=== PATIENT | female | born 1945 | race Caucasian/White ===

== ENCOUNTER 2017-12-21 13:16 | Day surgery (SDC) | payer MEDICARE, BC ==
[~2017-12-21] VITALS: Ht 162.6 cm; Wt 107.9 kg
[~2017-12-21 13:16] MED LIST: ADVIL 200MG TA200 MG PO; ASPIRIN 32325 MG/TAB PO; CALTRATE-600 W600 MG PO; CLEOCIN HCL300 MG PO; COREG 6.256.25 MG/TA PO; FISH OIL1 IU PO; FORTAMET500 M1 PO; GARLIC SUPPLEM300 MG; LASIX 80MG TABL80 MG PO; LORTAB 10/500 51 TAB PO; LORTAB 5/500 501 TAB PO; MICRO-K 1010 MEQ PO; MVI PO; NORCO 325 MG-7.1 TAB PO; ONE DAILY1 TA1 PO; POTASSIUM CH2 MEQ/ML PO; PRAVACHOL 40MG40 MG PO; PRILOSEC 20MG20 MG PO; PROZAC 10MG10 MG PO; VITAMIN B-1000 MCG/T PO; VITAMIN B12 PO; XARELTO10 MG PO; ZYLOPRIM 100MG100 MG PO; [UNRECOGNIZED DRUG - OTHER] PO
[2017-12-21 14:09] VITALS: BP 141/74; PULSE 82; TEMP 98.3
[2017-12-21] MEDS ORDERED: GLUCOSAMINE SU500 M2 PO (14:55)
[2017-12-21 17:40] VITALS: BP 169/59; PULSE 70; TEMP 97.4
[2017-12-21 17:55] VITALS: BP 156/71; PULSE 75
[2017-12-21 18:10] VITALS: BP 147/65; PULSE 82
[2017-12-21 18:15] VITALS: BP 135/70; PULSE 82
== END 2017-12-21 18:50 | disposition home or self-care (01) ==
LOC: SDCO 13:16
DX: N20.0 Calculus of kidney (principal); E78.5 Hyperlipidemia, unspecified; I11.0 Hypertensive heart disease with heart failure; I50.9 Heart failure, unspecified; E11.9 Type 2 diabetes mellitus without complications; I48.92 Unspecified atrial flutter; E66.9 Obesity, unspecified; F17.210 Nicotine dependence, cigarettes, uncomplicated; N39.0 Urinary tract infection, site not specified; Z90.49 Acquired absence of other specified parts of digestive tract; Z79.82 Long term (current) use of aspirin; Z79.84 Long term (current) use of oral hypoglycemic drugs; Z88.2 Allergy status to sulfonamides; Z88.1 Allergy status to other antibiotic agents; Z88.3 Allergy status to other anti-infective agents; Z88.8 Allergy status to other drugs, medicaments and biological substances
CPT/HCPCS: C1769; J2704; J3010; J7030; Q9967

== ENCOUNTER 2019-03-07 09:48 | Day surgery (SDC) | payer MEDICARE, BC ==
[~2019-03-07] VITALS: Ht 162.6 cm; Wt 110.4 kg
[2019-03-07] VITALS (7 sets, daily range): BP systolic 128–166; BP diastolic 55–78; PULSE 78–87; TEMP 98.6–98.7
[~2019-03-07 09:48] MED LIST changes: +GLUCOSAMINE SU500 M2 PO
--- NOTE | 2019-03-07 13:05 | NUR ---
Patient returns to room 1 per cart and arouses to verbal stimuli. Jerry wrap dressing dry on the right lower ankle. Patient denies pain or nausea. Temp 98.2. Siderails up x2 and call light in reach. IV fluids infusing and patient allowed to sleep.
--- NOTE | 2019-03-07 13:20 | NUR ---
Patient continuing to sleep. Remains on oxygen at 2L per nasal cannula. Foot of cart is elevated.
--- NOTE | 2019-03-07 13:35 | NUR ---
Continues to rest with eyes closed and remains on oxygen at 2L per nasal cannuala.
--- NOTE | 2019-03-07 13:50 | NUR ---
More awake now and sipping on diet Sprite. Family in room and talking with patient. Denies pain or nausea.
[2019-03-07] MEDS ORDERED: NORCO 325 MG-51 TAB PO (13:56)
--- NOTE | 2019-03-07 14:05 | NUR ---
Sitting on edge of bed eating muffin and applesauce. Ambulatory to the bathroom and gait steady. Tolerates activity well. Continues to deny pain or nausea.
--- NOTE | 2019-03-07 14:20 | NUR ---
INT removed. Family in room. Assisted with dressing.
--- NOTE | 2019-03-07 14:25 | NUR ---
Dismissal instructions given and voices understanding of these. Provided post op appointment date and time and Dr. Mcgee's office number for questions and concerns.
--- NOTE | 2019-03-07 14:33 | NUR ---
Patient dismissed to home per private vehicle driven by spouse and taken to the front door per wheelchair and assisted into vehilce by RN with dismissal instructions in hand.
== END 2019-03-07 14:33 | disposition home or self-care (01) ==
LOC: SDCO 09:48
DX: C43.71 Malignant melanoma of right lower limb, including hip (principal); E11.41 Type 2 diabetes mellitus with diabetic mononeuropathy; Z79.4 Long term (current) use of insulin; E66.01 Morbid (severe) obesity due to excess calories; Z68.41 Body mass index [BMI] 40.0-44.9, adult; E78.00 Pure hypercholesterolemia, unspecified; F17.210 Nicotine dependence, cigarettes, uncomplicated; M81.0 Age-related osteoporosis without current pathological fracture; Z90.49 Acquired absence of other specified parts of digestive tract; Z90.710 Acquired absence of both cervix and uterus; Z87.442 Personal history of urinary calculi; Z79.899 Other long term (current) drug therapy; Z79.82 Long term (current) use of aspirin; Z80.9 Family history of malignant neoplasm, unspecified; I11.0 Hypertensive heart disease with heart failure; I50.9 Heart failure, unspecified
CPT/HCPCS: J2405; J2704; J3010

== ENCOUNTER 2019-06-16 18:33 | Inpatient (IN) | payer MEDICARE, BC ==
[~2019-06-16] VITALS: Ht 162.6 cm; Wt 113.6 kg
[~2019-06-16 18:33] MED LIST changes: +NORCO 325 MG-51 TAB PO
[2019-06-16] MEDS ORDERED: PREDNISONE20 MG PO (20:43)
[2019-06-16 20:54] LABS: HEMATOCRIT 46.4 % (37.0-47.0); HEMOGLOBIN 15.3 g/dl (12.5-16.0); MEAN CELL VOLUME 96 fl (80.0-100.0); MEAN CORPUSCULAR HEMOGLOBIN 32 pg (27.0-31.0); MEAN CORPUSCULAR HGB CONC 33 g/dl (33.0-37.0); PLATELET COUNT 241 K/mm3 (130-400); RED BLOOD COUNT 4.85 M/mm3 (4.10-5.30); REDCELL DISTRIBUTION WIDTH-CV 14.7 % (11.5-14.5)
[2019-06-16 21:03] LABS: ALBUMIN 2.6 gm/dL (3.5-5.0); BILIRUBIN,TOTAL 0.2 mg/dL (0.0-1.0); C-REACTIVE PROTEIN 4.8 mg/dL (0.0-0.9); CREATININE, serum 0.83 (0.52-1.25); MAGNESIUM 1.6 mg/dL (1.6-2.3); PHOSPHOROUS 3.7 mg/dL (2.5-4.5); POTASSIUM 3.6 mmol/L (3.4-5.0)
[2019-06-16 21:08] VITALS: BP 123/50; PULSE 90; TEMP 98.3
[2019-06-16 21:13] VITALS: BP 123/50; PULSE 89; TEMP 98.3
[2019-06-16 21:22] LABS: BAND 24 % (0-10); BASOPHIL 1 % (0-2); EOSINOPHIL 1 % (0-4); LYMPHOCYTE 7 % (20.0-51.0); NEUTROPHILS 67 % (42.0-75.2); PLATELET ESTIMATE NORMAL (NORMAL)
--- NOTE | 2019-06-16 21:40 | NUR ---
Pt arrived to unit from EMS. Alert and oriented with VSS. Resting in bed. Did not want to change into gown. 5page completed along with med rec. Here with dx of colitis. States she has been having diarrhea for 2 weeks with bloody mucous. Has not had BM since she has been here. Arrived to unit with potassium 40meq with NS running at 125. Has history of melanoma on right lower leg. Does chemo with dr rubalcava, last session was 2 weeks ago. Has port to right chest. CD&I and dressing changed when she arrived to unit. Patient states her pain is stable at this time. Call light within reach, will continue to monitor
[2019-06-16 22:49] VITALS: BP 134/51; PULSE 82; TEMP 97.8
[2019-06-16] MEDS ORDERED: GLUCOPHAGE500 MG/TAB PO (23:10)
[2019-06-17 00:08] LABS: MUCOUS Present /lpf; PH 6 (5-8); SQUAMOUS EPITHELIAL 0-2 /hpf; URINE APPEARANCE Clear; URINE BACTERIA Rare /hpf; URINE BILIRUBIN Negative (NEGATIVE); URINE BLOOD Negative (NEGATIVE); URINE COLOR Yellow; URINE GLUCOSE Negative (NEGATIVE); URINE KETONE Negative (NEGATIVE); URINE LEUKOCYTE ESTERASE 1+ (NEGATIVE); URINE NITRATE Positive (NEGATIVE); URINE PROTEIN(semi-quant) 1+ (NEGATIVE); URINE RBC 0-2 /hpf; URINE UROBILINOGEN Negative (NEGATIVE)
[2019-06-17 00:09] LABS: COLLECTION METHOD CLEAN CATCH
--- NOTE | 2019-06-17 03:22 | NUR ---
Patient sleeping in bed. Potassium running. No issues noted. Has no concerns at this time. Call light within reach, will continue to monitor
[2019-06-17 04:00] VITALS: BP 127/57; PULSE 70; TEMP 98.2
[2019-06-17 08:26] VITALS: BP 123/58; PULSE 66; TEMP 98.3
--- NOTE | 2019-06-17 10:15 | NUR ---
Patient alert and oriented, answers questions appropriately. No c/o abdominal pain or pressure. Abdomen soft, non tender, non distended. Bowel sounds active x4 quads. +Flatus. No stools since late last night. No other c/o at this time.
[2019-06-17 11:12] LABS: HEMATOCRIT 46.3 % (37.0-47.0); HEMOGLOBIN 14.8 g/dl (12.5-16.0); MEAN CELL VOLUME 99 fl (80.0-100.0); MEAN CORPUSCULAR HEMOGLOBIN 32 pg (27.0-31.0); MEAN CORPUSCULAR HGB CONC 32 g/dl (33.0-37.0); MEAN PLATELET VOLUME 9.8 fl (7.4-10.4); PLATELET COUNT 242 K/mm3 (130-400); REDCELL DISTRIBUTION WIDTH-CV 14.9 % (11.5-14.5)
[2019-06-17 11:18] LABS: CALCIUM 8.3 mg/dL (8.4-10.2); CREATININE, serum 0.67 (0.52-1.25); MAGNESIUM 2.1 mg/dL (1.6-2.3)
[2019-06-17 11:34] LABS: BAND 37 % (0-10); LYMPHOCYTE 6 % (20.0-51.0); METAMYELOCYTE 1 % (0-0); MYELOCYTE 4 % (0-0); NEUTROPHILS 51 % (42.0-75.2)
[2019-06-17 11:36] LABS: PLATELET ESTIMATE NORMAL (NORMAL)
[2019-06-17 12:08] VITALS: BP 113/54; PULSE 56; TEMP 98.2
--- NOTE | 2019-06-17 14:13 | NUR ---
Dr Siddiqui notified of consult.
[2019-06-17 16:04] VITALS: BP 114/58; PULSE 63; TEMP 98.1
--- NOTE | 2019-06-17 16:40 | NUR ---
Plan is to return home with Sebastian . DTR Sondra Leonardo is and EMR contact. Patient reports that she resides in [facility]. Patient reports Dr. Parker as PCP with [facility] in late Jun. Patient reports that [facility] is where they otain RX. Patient reports the use of a cane PRn. No additona DME. Declines home health services. Patient reports having a DPOA and not sure if copy on file. No additonal needs identified.
--- NOTE | 2019-06-17 20:08 | NUR ---
Pt doing ok. Alert and oriented with vss. C/o mild abdominal cramping. Fluids running. No other complaints at this time. Call light within reach, will continue to monitor
[2019-06-17 20:12] VITALS: BP 116/48; PULSE 58; TEMP 97.9
[2019-06-17 23:47] VITALS: PULSE 64
[2019-06-18] VITALS (7 sets, daily range): BP systolic 112–136; BP diastolic 51–70; PULSE 56–66; TEMP 96.3–98.3
--- NOTE | 2019-06-18 03:32 | NUR ---
Received call from lab stating procalcitonin that was ordered 06/16 was missed. Lab re-ordered for this AM draw and will be back within 24 hours
[2019-06-18 07:20] LABS: HEMATOCRIT 45.7 % (37.0-47.0); HEMOGLOBIN 14.5 g/dl (12.5-16.0); MEAN CELL VOLUME 98 fl (80.0-100.0); MEAN CORPUSCULAR HEMOGLOBIN 31 pg (27.0-31.0); MEAN CORPUSCULAR HGB CONC 32 g/dl (33.0-37.0); MEAN PLATELET VOLUME 10.1 fl (7.4-10.4); PLATELET COUNT 263 K/mm3 (130-400); RED BLOOD COUNT 4.66 M/mm3 (4.10-5.30)
[2019-06-18 07:38] LABS: CALCIUM 8.2 mg/dL (8.4-10.2); CREATININE, serum 0.65 (0.52-1.25); POTASSIUM 3.9 mmol/L (3.4-5.0)
[2019-06-18 08:23] LABS: BAND 21 % (0-10); LYMPHOCYTE 4 % (20.0-51.0); NEUTROPHILS 68 % (42.0-75.2); NUCLEATED RED BLOOD CELL 1 (0-6); PLATELET ESTIMATE NORMAL (NORMAL)
--- NOTE | 2019-06-18 10:00 | NUR ---
Patient alert and oriented, answers questions appropriately. See assessment. Abdomen soft, non tender, non distended. Bowel sounds active x4 quads. +Flatus. +Bowel movement. No c/o abdominal pain or cramping. No other c/o at this time.
--- NOTE | 2019-06-18 11:53 | NUR ---
Initial visit; Patient thanked Retail Agent for looking in on her and offering God's blessings.
--- NOTE | 2019-06-18 14:30 | NUR ---
VAISHNAVI met with the patient to review discharge plan and to discuss PT's recommendation of home vs some post-acute rehab. The patient reports that she still plans to return home with her upon discharge. She states that she is not interested in going anywhere for post-acute rehab. VAISHNAVI also discussed home health services and outpatient PT. The patient reports that she is not interested in home health or outpatient PT either. She states that she has been getting around okay and does not have any concerns. The patient had no other questions for VAISHNAVI at this time. VAISHNAVI to continue to follow.
--- NOTE | 2019-06-18 19:40 | NUR ---
Lying in bed with eyes open watching TV. Rates pain in lower back and hips 6/10 and describes the pain as an ache. Scheduled pain medication administered as prescribed. Bilateral lower extremities with 1+ edema. Right lower extremity with healed venous ulcers and there are multiple areas of 0.5cm black circles that patient says is the site of her cancer. Dressing to port-a-cath not intact. Sterile dressing change performed at this time to port-a-cath on right upper chest. Patient tolerates procedure without difficulty. Patient was able to have a small loose stool. Stool specimens collected at this time and sent to the lab. Patient denies further needs at this time.
--- NOTE | 2019-06-18 21:45 | NUR ---
Lying in bed with eyes open. Rates pain 3/10, feels that the pain medication helped. Denies further needs at this time.
--- NOTE | 2019-06-18 23:25 | NUR ---
Lying in bed with eyes closed. Eyes open when name called out. Denies pain. Ambulates to bathroom, gait steady. Voids without difficulty. Returns to bed. Denies further needs at this time.
[2019-06-19 03:41] VITALS: BP 131/66; PULSE 57; TEMP 97.7
--- NOTE | 2019-06-19 03:45 | NUR ---
Lying in bed with eyes closed. Eyes open when name called out. Denies pain. Denies any needs at this time.
--- NOTE | 2019-06-19 05:45 | NUR ---
Patient up to bathroom. Has small stool and urinates. Returns to bed. Denies pain or any further needs at this time.
[2019-06-19 06:57] LABS: HEMATOCRIT 44.6 % (37.0-47.0); HEMOGLOBIN 14.3 g/dl (12.5-16.0); MEAN CELL VOLUME 97 fl (80.0-100.0); MEAN CORPUSCULAR HEMOGLOBIN 31 pg (27.0-31.0); MEAN CORPUSCULAR HGB CONC 32 g/dl (33.0-37.0); MEAN PLATELET VOLUME 10.2 fl (7.4-10.4); PLATELET COUNT 243 K/mm3 (130-400); RED BLOOD COUNT 4.58 M/mm3 (4.10-5.30)
[2019-06-19 07:12] LABS: CALCIUM 8.1 mg/dL (8.4-10.2); CREATININE, serum 0.69 (0.52-1.25); POTASSIUM 4.6 mmol/L (3.4-5.0)
[2019-06-19 07:27] LABS: BAND 12 % (0-10); LYMPHOCYTE 8 % (20.0-51.0); NEUTROPHILS 78 % (42.0-75.2); PLATELET ESTIMATE NORMAL (NORMAL)
[2019-06-19 07:38] VITALS: BP 150/62; PULSE 63; TEMP 98.5
[2019-06-19 11:17] VITALS: BP 133/70; PULSE 61; TEMP 98.1
--- NOTE | 2019-06-19 11:46 | NUR ---
First visit from the corrosion control fitter. No needs right now.
[2019-06-19 16:20] VITALS: BP 157/62; PULSE 56; TEMP 98.2
--- NOTE | 2019-06-19 18:00 | NUR ---
Patient seemed to be having a good day today. She did not have too much pain. No complaints of nausea. She had one loose/liquid stool before my shift and none all day. Discharge discharge plan for her when she goes home. Other patient has been doing well an is independent. No other changes at this time. Call light within reach.
[2019-06-19 19:31] VITALS: BP 137/58; PULSE 61; TEMP 97.9
--- NOTE | 2019-06-19 20:15 | NUR ---
Pt. sitting up in bed at this time. Pt. is A&OX3, assessment complete. Portacath to rt. chest patent. Pt. reported back pain at a 5 on pain scale, gave pain meds per orders. Pt. denies further needs, call light within reach.
[2019-06-20] VITALS: BP 150/65; PULSE 65; TEMP 97.9
[2019-06-20 04:00] VITALS: BP 153/58; PULSE 62; TEMP 98.2
--- NOTE | 2019-06-20 07:00 | NUR ---
Reported onto BOO Velarde.
[2019-06-20 07:10] LABS: HEMATOCRIT 44.1 % (37.0-47.0); HEMOGLOBIN 14.3 g/dl (12.5-16.0); MEAN CELL VOLUME 97 fl (80.0-100.0); MEAN CORPUSCULAR HEMOGLOBIN 31 pg (27.0-31.0); MEAN CORPUSCULAR HGB CONC 32 g/dl (33.0-37.0); MEAN PLATELET VOLUME 10.2 fl (7.4-10.4); PLATELET COUNT 223 K/mm3 (130-400); RED BLOOD COUNT 4.57 M/mm3 (4.10-5.30); REDCELL DISTRIBUTION WIDTH-CV 14.9 % (11.5-14.5)
[2019-06-20 07:26] VITALS: BP 154/76
[2019-06-20 07:26] LABS: CALCIUM 8.1 mg/dL (8.4-10.2); CREATININE, serum 0.71 (0.52-1.25); POTASSIUM 4.5 mmol/L (3.4-5.0)
[2019-06-20 07:27] VITALS: BP 154/76; PULSE 62; TEMP 97.9
--- NOTE | 2019-06-20 07:30 | NUR ---
shift assessment completed. VSS non pitting edema noted in both feet. Patient states ready to go home. Patient ate 50% of general diet and drank a total of 360ml.
[2019-06-20 09:20] LABS: BAND 3 % (0-10); LYMPHOCYTE 7 % (20.0-51.0); METAMYELOCYTE 1 % (0-0); NEUTROPHILS 87 % (42.0-75.2); PLATELET ESTIMATE NORMAL (NORMAL)
--- NOTE | 2019-06-20 10:12 | NUR ---
SW attended clinical rounds. The patient is to discharge back home with her today, 06/20. No additional needs at this time.
--- NOTE | 2019-06-20 10:30 | NUR ---
Patient is doing well this am. Denies pain or nausea at this time. She is discharging home and is looking forward to going home. Explained that we will do her discharge paperwork as soon as the Hospitalist fill it out. No other changes at this time. Call light within reach.
[2019-06-20] MEDS ORDERED: COREG 3.123.125 MG/T PO (10:52)
[2019-06-20] MEDS ORDERED: PREDNISONE20 MG PO (10:57)
[2019-06-20 11:06] VITALS: BP 157/69; PULSE 68; TEMP 98.2
--- NOTE | 2019-06-20 11:16 | NUR ---
Reported off to nurse BOO Velarde.
--- NOTE | 2019-06-20 14:25 | NUR ---
Patient is discharging home. Discharge instructions discussed with patient. No questions verbalized. Port deaccessed by this nurse. Heparnized with 5ml of heparin before romaval, 500units of heparin. Explained follow up appointments. Explained that GI office will call with a follow up for the colitis. Patient verbalized understanding. All belongings packed up and sent with patient. Patient walked out via wheel chair.
== END 2019-06-20 14:25 | disposition home or self-care (01) | DRG 871 ==
LOC: SURG 18:33
PROVIDERS: Nurse Practitioner Family; Physician Assistant; ADMIT Hospitalist
DX: A41.9 Sepsis, unspecified organism (principal); J96.01 Acute respiratory failure with hypoxia; Z68.41 Body mass index [BMI] 40.0-44.9, adult; I48.92 Unspecified atrial flutter; I42.9 Cardiomyopathy, unspecified; N39.0 Urinary tract infection, site not specified; K52.9 Noninfective gastroenteritis and colitis, unspecified; I10 Essential (primary) hypertension; E78.5 Hyperlipidemia, unspecified; E66.01 Morbid (severe) obesity due to excess calories; E83.42 Hypomagnesemia; E87.6 Hypokalemia; N20.0 Calculus of kidney; J44.9 Chronic obstructive pulmonary disease, unspecified; C43.9 Malignant melanoma of skin, unspecified; I45.10 Unspecified right bundle-branch block; E11.9 Type 2 diabetes mellitus without complications; F17.210 Nicotine dependence, cigarettes, uncomplicated; Z79.84 Long term (current) use of oral hypoglycemic drugs; Z79.52 Long term (current) use of systemic steroids; Z79.82 Long term (current) use of aspirin; Z90.710 Acquired absence of both cervix and uterus; Z98.84 Bariatric surgery status; Z88.1 Allergy status to other antibiotic agents; Z88.0 Allergy status to penicillin; Z88.2 Allergy status to sulfonamides
CPT/HCPCS: 99222-AI; 99231-AI; 99232-AI; 99239; C9113; J1100; J1815; J2185; J3475; J3480; J7030

== ENCOUNTER 2019-06-27 11:59 | Day surgery (SDC) | payer MEDICARE, BC ==
[~2019-06-27] VITALS: Ht 162.6 cm; Wt 102.3 kg
[~2019-06-27 11:59] MED LIST changes: +COREG 3.123.125 MG/T PO; +GLUCOPHAGE500 MG/TAB PO; +PREDNISONE20 MG PO
[2019-06-27] MEDS ORDERED: NYSTATIN OR100 MU/ML PO (12:38)
[2019-06-27] MEDS ORDERED: DIFLUCAN 100MG100 MG PO (12:38)
[2019-06-27 12:48] VITALS: BP 132/68; PULSE 95; TEMP 99.1
--- NOTE | 2019-06-27 13:15 | NUR ---
Jose cath to right chest accessed using sterile technique. 19G 3/4" long needle used. Good blood return. Site covered with tegaderm. Pt tolerated procedure well. into consult with pt.
[2019-06-27 13:55] VITALS: BP 167/83; PULSE 86; TEMP 97.3
--- NOTE | 2019-06-27 13:55 | NUR ---
Pt to bay 3 via cart from [employer]. Pt drowsy, but awake. Pt ambulates to recliner with stand by assistance. Warm blankets provided. VSS. in room. Sprite, water, muffin and applesauce provided per pt request. Will continue to monitor.
[2019-06-27] MEDS ORDERED: VANCOCIN H125 MG/CAP PO (14:01)
[2019-06-27 14:10] VITALS: BP 145/80; PULSE 89
--- NOTE | 2019-06-27 14:10 | NUR ---
Pt continues to rest. Tolerating food and fluids without difficulties. Denies needs at this time.
[2019-06-27 14:25] VITALS: BP 136/80; PULSE 88
--- NOTE | 2019-06-27 14:25 | NUR ---
Pt resting. Denies needs. Call light within reach.
[2019-06-27 14:40] VITALS: BP 136/80; PULSE 88
--- NOTE | 2019-06-27 14:40 | NUR ---
Pt continues to rest. Denies needs. Call light within reach.
[2019-06-27 14:55] VITALS: BP 133/78; PULSE 90
--- NOTE | 2019-06-27 14:55 | NUR ---
Pt continues to rest. Denies needs.
--- NOTE | 2019-06-27 15:00 | NUR ---
Discharge instructions reviewed. Pt voices understanding. Jose cath flushed with 10ml NS followed by Heprin 500 units. Jose cath deaccessed with all parts intact. Bandaid placed. Pt up to dress with assistance from her . Call light within reach.
--- NOTE | 2019-06-27 15:15 | NUR ---
Pt escorted to private car via wheel chair. Pt accompanied home by her .
== END 2019-06-27 15:15 | disposition home or self-care (01) ==
LOC: SDCO 11:59
DX: K52.9 Noninfective gastroenteritis and colitis, unspecified (principal); K31.89 Other diseases of stomach and duodenum; K92.1 Melena; F41.9 Anxiety disorder, unspecified; K59.00 Constipation, unspecified; F32.9 Major depressive disorder, single episode, unspecified; E78.00 Pure hypercholesterolemia, unspecified; F17.210 Nicotine dependence, cigarettes, uncomplicated; I11.0 Hypertensive heart disease with heart failure; I50.9 Heart failure, unspecified; K21.9 Gastro-esophageal reflux disease without esophagitis; E11.9 Type 2 diabetes mellitus without complications; I48.91 Unspecified atrial fibrillation; Z92.21 Personal history of antineoplastic chemotherapy; Z88.1 Allergy status to other antibiotic agents; Z88.3 Allergy status to other anti-infective agents; Z88.0 Allergy status to penicillin; Z88.2 Allergy status to sulfonamides; Z91.048 Other nonmedicinal substance allergy status; Z79.84 Long term (current) use of oral hypoglycemic drugs; Z79.82 Long term (current) use of aspirin; Z85.820 Personal history of malignant melanoma of skin; Z90.710 Acquired absence of both cervix and uterus; Z90.49 Acquired absence of other specified parts of digestive tract; Z91.041 Radiographic dye allergy status
CPT/HCPCS: J1644; J2704; J7030

== ENCOUNTER 2019-07-30 11:00 | Outpatient (RCR) | payer MEDICARE, BC ==
[2019-07-17 11:17] LABS: HEMATOCRIT 46.5 % (37.0-47.0); MEAN CELL VOLUME 96 fl (80.0-100.0); MEAN CORPUSCULAR HEMOGLOBIN 31 pg (27.0-31.0); MEAN CORPUSCULAR HGB CONC 32 g/dl (33.0-37.0); MEAN PLATELET VOLUME 10.5 fl (7.4-10.4); PLATELET COUNT 195 K/mm3 (130-400); RED BLOOD COUNT 4.83 M/mm3 (4.10-5.30); REDCELL DISTRIBUTION WIDTH-CV 15.2 % (11.5-14.5)
[2019-07-17 11:31] LABS: ALBUMIN 3.1 gm/dL (3.5-5.0); BILIRUBIN,TOTAL 0.4 mg/dL (0.0-1.0); CALCIUM 8.7 mg/dL (8.4-10.2); CREATININE, serum 1.08 (0.52-1.25); TOTAL PROTEIN 5.5 gm/dL (6.4-8.2)
[2019-07-17 12:17] VITALS: BP 118/88; PULSE 87; TEMP 97.6
[2019-07-17 13:40] VITALS: BP 133/73; PULSE 94; TEMP 98.3
[2019-07-17 14:10] VITALS: BP 103/51; PULSE 104; TEMP 97.1
[2019-07-17 14:40] VITALS: BP 120/61; PULSE 88; TEMP 97.8
[2019-07-17 15:10] VITALS: BP 118/66; PULSE 93; TEMP 98.6
--- NOTE | 2019-07-17 15:35 | NUR ---
Pt annette Inflectra well. Pt discharged per w/c by nurse with friend. Pt will return 07/30/19 for 2 week infusion.
[~2019-07-30] VITALS: Ht 162.6 cm; Wt 97.9 kg
[~2019-07-30 11:00] MED LIST changes: +CLEOCIN HC150 MG/CAP PO; +DIFLUCAN 100MG100 MG PO; +MULTI VITAMINS1 TAB PO; +NYSTATIN OR100 MU/ML PO; -ONE DAILY1 TA1 PO; +VANCOCIN H125 MG/CAP PO
[2019-07-30 11:05] LABS: HEMATOCRIT 39.8 % (37.0-47.0); MEAN CELL VOLUME 97 fl (80.0-100.0); MEAN CORPUSCULAR HEMOGLOBIN 32 pg (27.0-31.0); MEAN CORPUSCULAR HGB CONC 33 g/dl (33.0-37.0); MEAN PLATELET VOLUME 10.4 fl (7.4-10.4); PLATELET COUNT 283 K/mm3 (130-400); RED BLOOD COUNT 4.12 M/mm3 (4.10-5.30)
[2019-07-30 11:21] LABS: ALBUMIN 3.2 gm/dL (3.5-5.0); BILIRUBIN,TOTAL 0.7 mg/dL (0.0-1.0); CALCIUM 8.5 mg/dL (8.4-10.2); CREATININE, serum 0.96 (0.52-1.25); POTASSIUM 3.8 mmol/L (3.4-5.0); TOTAL PROTEIN 5.9 gm/dL (6.4-8.2)
[2019-07-30 12:07] VITALS: BP 98/64; PULSE 93; TEMP 98.1
[2019-07-30] MEDS ORDERED: NOVOLOG 100U100 U/M1 SQ (12:18)
[2019-07-30 12:37] VITALS: BP 108/55; PULSE 87
[2019-07-30 13:05] VITALS: BP 123/68; PULSE 92
[2019-07-30 13:40] VITALS: BP 111/65; PULSE 90; TEMP 98
[2019-07-30 14:15] VITALS: BP 112/66; PULSE 91; TEMP 97
== END 2019-07-30 14:30 | disposition still patient (30) ==
LOC: EUO 11:00
PROVIDERS: Internal Medicine Gastroenterology
DX: T65.91XA Toxic effect of unspecified substance, accidental (unintentional), initial encounter (principal); Z79.899 Other long term (current) drug therapy
CPT/HCPCS: J1200; J1644; J2930; J7050; Q5103

== ENCOUNTER → 2020-05-12 | Outpatient (CLI) | payer BC, MEDICARE ==
[~2020-05-12] MED LIST changes: +NOVOLOG 100U100 U/M1 SQ
== END ==
LOC: COL.RAD 07:32
DX: R63.0 Anorexia (principal); R10.13 Epigastric pain; R63.4 Abnormal weight loss
CPT/HCPCS: A9541

== ENCOUNTER 2021-10-26 08:24 | Inpatient (IN) | payer MEDICARE, BC ==
[~2021-10-26] VITALS: Ht 162.7 cm; Wt 75.4 kg
[2021-12-01] VITALS (9 sets, daily range): BP systolic 121–150; BP diastolic 48–77; PULSE 64–94; TEMP 97.8–981
[2021-12-01] MEDS ORDERED: ZYLOPRIM 100MG100 MG PO (10:57)
[2021-12-01] MEDS ORDERED: ASPIRIN 32325 MG/TAB PO (10:58)
[2021-12-01] MEDS ORDERED: TUMS500 MG PO (10:59)
[2021-12-01] MEDS ORDERED: PROZAC 20MG20 MG PO (11:00)
[2021-12-01] MEDS ORDERED: LASIX 40MG TABL40 MG PO (11:01)
[2021-12-01] MEDS ORDERED: MULTI VITAMINS1 TAB PO (11:04)
[2021-12-01] MEDS ORDERED: PROAMATINE10 MG PO (11:04)
[2021-12-01] MEDS ORDERED: PRILOSEC 20MG20 MG PO (11:05)
[2021-12-01] MEDS ORDERED: NORCO 325 MG-7.1 TAB PO (11:05)
[2021-12-01] MEDS ORDERED: KLOR-CON M1010 MEQ PO (11:07)
[2021-12-01] MEDS ORDERED: TAMBOCOR50 MG PO (11:10)
[2021-12-01] MEDS ORDERED: CARDIZEM CD 12120 MG PO (11:11)
[2021-12-01] MEDS ORDERED: ELIQUIS 5MG PO (11:13)
[2021-12-01] MEDS ORDERED: REGLAN 5MG T5 MG/TAB PO (11:13)
[2021-12-01] MEDS ORDERED: ALBUTEROL0.83 MG/ML IH (11:15)
[2021-12-01] MEDS ORDERED: ATROVENT I0.2 MG/1 M IH (11:16)
[2021-12-01] MEDS ORDERED: PRAVACHOL 40MG40 MG PO (11:17)
[2021-12-01] MEDS ORDERED: VITAMIN B12 781 TAB PO (11:18)
[2021-12-01 11:52] LABS: BASO % 0.5 % (0.0-2.0); EOS # 0.3 K/mm3 (0.0-0.7); EOS % 3.7 % (0.0-4.0); GRAN # 4.8 K/mm3 (1.4-6.5); GRAN % 65.6 % (42.2-75.2); HEMATOCRIT 39.7 % (37.0-47.0); HEMOGLOBIN 12.6 g/dl (12.5-16.0); LYMPH # 1.7 K/mm3 (1.2-3.4); LYMPH % 23.2 % (20.0-51.0); MEAN CELL VOLUME 104 fl (80.0-100.0); MEAN CORPUSCULAR HEMOGLOBIN 33 pg (27-31); MEAN CORPUSCULAR HGB CONC 32 g/dl (33.0-37.0); MEAN PLATELET VOLUME 10.2 fl (7.4-10.4); MONO # 0.5 K/mm3 (0.1-0.6); MONO % 6.6 % (1.7-9.3); PLATELET COUNT 237 K/mm3 (130-400); RED BLOOD COUNT 3.83 M/mm3 (4.10-5.30)
[2021-12-01 12:05] LABS: CALCIUM 8.6 mg/dL (8.4-10.2); CREATININE, serum 1.41 mg/dL (0.57-1.11); POTASSIUM 4.1 mmol/L (3.5-4.5)
--- NOTE | 2021-12-01 15:58 | NUR ---
PT TO ROOM 343 PER BED WITH REPORT FROM GONZALES HADDAD PACU @7927. PT IS A/0 X3, SUAREZ TO DD IV TO LH. INCISIONS CDI WITH EXOPHEN. VSS. PT LOST A TOOTH DURING INTUBATION. FAMILY TOOK TOOTH AND IS AWARE. PT RATING PAIN 8/10 AND TALKING TO FAMILY. 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
--- NOTE | 2021-12-01 20:48 | NUR ---
PT IN BED, IS ALERT AND ORIENTED X4. REPORTS RT ABD PAIN. HAS ROBOTIC SITES X6 WITH SMALL INCISION, D/I. HS MEDS GIVEN INCLUDING SCHEDULED NORCO 7.5MG 2 TABS. SUAREZ TO BSD, DRAINING LIGHT YELLOW URINE. TAKING ORAL FLUIDS WELL. IVF TO LEFT HAND, INFUSING WITHOUT REDNESS OR SWELLING. WANTS TO GO FOR A WALK.
--- NOTE | 2021-12-01 21:08 | NUR ---
AMBULATES WITH STAFF AND ROLLING WALKER AROUND UNIT, GAIT STEADY.
[2021-12-02 00:32] VITALS: BP 124/47; PULSE 84; TEMP 98.5
--- NOTE | 2021-12-02 03:00 | NUR ---
Pt taking oral fluids well. IVF capped. Takes ES Tylenol per schedule at this time. Goodman with good urine output.
[2021-12-02 03:24] VITALS: BP 123/52; PULSE 77; TEMP 98.8
[2021-12-02 05:16] LABS: BASO % 0.1 % (0.0-2.0); GRAN # 7.1 K/mm3 (1.4-6.5); GRAN % 83.1 % (42.2-75.2); HEMOGLOBIN 11.2 g/dl (12.5-16.0); LYMPH # 0.8 K/mm3 (1.2-3.4); LYMPH % 9.5 % (20.0-51.0); MEAN CELL VOLUME 103 fl (80.0-100.0); MEAN CORPUSCULAR HEMOGLOBIN 33 pg (27-31); MEAN CORPUSCULAR HGB CONC 32 g/dl (33.0-37.0); MEAN PLATELET VOLUME 10.1 fl (7.4-10.4); MONO # 0.6 K/mm3 (0.1-0.6); MONO % 6.8 % (1.7-9.3); PLATELET COUNT 230 K/mm3 (130-400); RED BLOOD COUNT 3.42 M/mm3 (4.10-5.30); REDCELL DISTRIBUTION WIDTH-CV 12.7 % (11.5-14.5)
[2021-12-02 05:25] LABS: HEMATOCRIT 35.1 % (37.0-47.0)
[2021-12-02 05:34] LABS: CALCIUM 8.6 mg/dL (8.4-10.2); CREATININE, serum 1.46 mg/dL (0.57-1.11); POTASSIUM 5.7 mmol/L (3.5-4.5)
--- NOTE | 2021-12-02 05:45 | NUR ---
NOTIFIED RUSSELL WEST OF PT K+5.7, NEW ORDERS RECIEVED.
--- NOTE | 2021-12-02 06:18 | NUR ---
SCHEDULED AM MED PROTONIX GIVEN, WELL LASIX 80MG PO DOSE. PT ALSO GIVEN REGULAR INSULIN 10U IV AND D50 25GM IV AT THIS TIME FOR HIGH POTASSIUM.
[2021-12-02 07:37] VITALS: BP 121/47; PULSE 79; TEMP 98.7
--- NOTE | 2021-12-02 08:59 | NUR ---
PT SITTING UP IN BED EATING BREAKFAST, PT DENIES NEEDS AT THIS TIME. PO MEDS PROVIDING ADEQUATE PAIN RELIFE PER PT REPORT. PA GRISEL IN TO SEE PT THIS AM. SEE ORDERS. INCISISIONS CDI OPEN TO AIR.
[2021-12-02] MEDS ORDERED: ASPIRIN E.C. 8181 MG PO (09:54)
--- NOTE | 2021-12-02 10:26 | NUR ---
Social Work student met with patient to discuss discharge planning. Patient lives in [place] with her , Roque(ph#[phone]). Patient sees Dr. Major Dasilva for primary care, and she receives her medications from [facility] in [place]. Patient states that at home she utilizes a walker for "long distances only" for durable medical equiptment. Patient also states that she uses oxygen at home through [facility] in [place]. Patient has a nebulizer, oxygen converter, and a portable oxygen tank. Patient states that she does have a DPOA-HC filled out and states that her primary care office should have one. SW called [facility] and spoke to Amaya regarding the patient's DPOA-HC. Amaya confirmed that they do have a copy on file, and stated she will fax it to the surgical unit for this SW. *Discharge plan: Home*
--- NOTE | 2021-12-02 10:40 | NUR ---
Social Work student received the DPOA-HC for patient from [facility]. This SW stickered it and placed it on the chart. It appoints her , Sebastian as primary, and her daughter, Clementina Ferguson(ph#[phone]) as alternate.
--- NOTE | 2021-12-02 10:54 | NUR ---
SUAREZ CATHETER DISCONTINUED PER ORDERS. TIP INTACT, PT TOLERATED WELL. 1700 CLEAR YELLOW URINE REMOVED PRIOR TO DISCONTINUEING CATHETER.
[2021-12-02 11:09] VITALS: BP 140/44; PULSE 83; TEMP 98.3
--- NOTE | 2021-12-02 11:42 | NUR ---
First visit from the motor builder winder No needs right now.
--- NOTE | 2021-12-02 13:49 | NUR ---
DISCHARGE INSTRUCTIONS REVIEWED WITH PT AND . QUESTIONS SOLICITED AND ANSWERED. PT LEFT PER WHEEL CHAIR WITH STAFF.
== END 2021-12-02 14:05 | disposition home or self-care (01) | DRG 660 ==
LOC: SURG 11-17 12:00 → INPTSU 12-01 09:18 → SURG 12-01 12:00
PROVIDERS: ADMIT Urology
PROC: 0DNU4ZZ Release Omentum, Percutaneous Endoscopic Approach (ICD-10-PCS; 2021-12-01)
PROC: 8E0W4CZ Robotic Assisted Procedure of Trunk Region, Percutaneous Endoscopic Approach (ICD-10-PCS; 2021-12-01)
PROC: 0TT04ZZ Resection of Right Kidney, Percutaneous Endoscopic Approach (ICD-10-PCS; principal; 2021-12-01 12:00)
DX: N20.0 Calculus of kidney (principal); J96.11 Chronic respiratory failure with hypoxia; N26.1 Atrophy of kidney (terminal); K66.0 Peritoneal adhesions (postprocedural) (postinfection); J44.9 Chronic obstructive pulmonary disease, unspecified; E78.5 Hyperlipidemia, unspecified; I48.0 Paroxysmal atrial fibrillation; E11.9 Type 2 diabetes mellitus without complications; C43.9 Malignant melanoma of skin, unspecified; G89.29 Other chronic pain; M54.50 Low back pain, unspecified; E87.5 Hyperkalemia; E66.9 Obesity, unspecified; F17.210 Nicotine dependence, cigarettes, uncomplicated; I11.0 Hypertensive heart disease with heart failure; I50.9 Heart failure, unspecified; I48.91 Unspecified atrial fibrillation; K21.9 Gastro-esophageal reflux disease without esophagitis; M19.90 Unspecified osteoarthritis, unspecified site; F32.A Depression, unspecified; Z79.82 Long term (current) use of aspirin; Z87.442 Personal history of urinary calculi; Z99.81 Dependence on supplemental oxygen
CPT/HCPCS: 99222; 99233-AI; A4314; J0690; J1100; J1170; J1650; J1815; J2250; J2370; J2405; J2704; J2795; J3010; J7030; J7050; J7120